=== PATIENT | male | born 1970 | race American Indian/Alaskan Native ===

== ENCOUNTER 2020-05-09 22:58 | Emergency (ER) ==
[2020-05-09 23:26] VITALS: BP 118/71
[2020-05-09 23:59] LABS: Basophils # (Auto) 0.1 K/mm3 (0.0-0.1); Basophils % (Auto) 1.4 % (0.0-1.8); Eosinophils % (Auto) 0.4 % (0.0-4.3); Lymphocytes # (Auto) 1.9 K/mm3 (1.2-5.4); Lymphocytes % (Auto) 28.8 % (13.4-35.0); Mean Corpuscular HGB Conc 37 % (32-34); Mean Corpuscular Volume 89 fl (84-94); Monocytes # (Auto) 0.4 K/mm3 (0.0-0.8); Monocytes % (Auto) 5.7 % (0.0-7.3); Platelet Count 234 K/mm3 (140-440); Red Blood Count 4.35 M/mm3 (3.65-5.03); Red Cell Distribution Width 14.8 % (13.2-15.2)
[2020-05-10 00:03] LABS: Hematocrit 38.5 % (35.5-45.6); Hemoglobin 14.1 gm/dl (11.8-15.2)
[2020-05-10 00:12] LABS: Alanine Aminotransferase 15 units/L (7-56); Albumin 4.5 g/dL (3.9-5); BUN/Creatinine Ratio 14; Blood Urea Nitrogen 13 mg/dL (9-20); Calcium 9.9 mg/dL (8.4-10.2); Hemolysis Index 11
[2020-05-10 03:30] LABS: Bilirubin,Urine NEG (Negative); Blood,Urine NEG (Negative); Color,Urine Yellow (Yellow); Mucus,Urine 2+ /HPF; Protein,Urine <15 mg/dL mg/dL (Negative)
== END 2020-05-10 00:10 | disposition left against medical advice (07) ==
LOC: ED 22:58
CPT/HCPCS: 36415; 80053; 81001; 83690; 85025

== ENCOUNTER 2021-04-06 07:48 | Emergency (ER) | payer OTHER ==
[2021-04-06] MEDS ORDERED: KETOROLAC 60 MG/2 ML INJ IM ONE (09:29)
[2021-04-06] MEDS ORDERED: ACETAMINOPHEN W/CODEINE 300-30 MG TAB PO ONE (09:29)
[2021-04-06] MEDS ORDERED: dexAMETHasone 4 MG/ML VIAL IM ONE (09:29)
--- NOTE | 2021-04-06 09:34 | Emergency Department Report ---
ED Back Pain/Injury HPI - General Chief Complaint: Back Pain/Injury Stated Complaint: LOWER BACK PAIN Time Seen by Provider: 04/06/21 09:06 Source: patient Limitations: No Limitations - History of Present Illness Initial Comments: 50 year old male presents to ED with complaints of lower back pain. Patient states his back pain started about 2 weeks ago. He denies any injury but he states he does do lifting at work. He states pain has been constant and worse with any movement/position. He states pain was worse this morning to the point he had difficulty moving. He states he has been taking aleve without much relief. He denies any radiation of pain. He denies any bowel or bladder incontinence, urinary retention or constipation. He denies saddle anesthesia, LE weakness, numbness or tingling or any other symptoms. He states he has been having lower back pain off and on for few yrs but the pain has not been as bad as it has been in the past 2 weeks. He states that he did go to an urgent care several years ago once for his back pain and got a shot but that did not really help. He states that he is never followed up with a physician coding specialist or primary care doctor or any other ERs for his back pain. MD Complaint: back pain -: week(s) (2) - Related Data Previous Rx's Medication Instructions Recorded Last Taken Type Acetaminophen/Codeine [Tylenol 1 tab PO Q6H PRN #12 tab 04/06/21 Unknown Rx /Codeine # 3 tab] methOCARBAMOL [Robaxin TAB] 750 mg PO Q8H PRN #30 tablet 04/06/21 Unknown Rx methylPREDNISolone [Medrol 4MG 4 mg PO DAILY #1 tab.ds.pk 04/06/21 Unknown Rx DOSEPAK (21 tabs)] Allergies Allergy/AdvReac Type Severity Reaction Status Date / Time No Known Allergies Allergy Unverified 05/09/20 23:25 ED Review of Systems ROS: Stated complaint: LOWER BACK PAIN Other details as noted in HPI Comment: All other systems reviewed and negative Respiratory: denies: cough, shortness of breath, SOB with exertion, SOB at rest, wheezing Cardiovascular: denies: chest pain, palpitations Gastrointestinal: denies: abdominal pain, nausea, diarrhea, constipation, hematemesis, hematochezia Genitourinary: denies: urgency, dysuria, frequency, hematuria, discharge, testicular pain, testicular mass Musculoskeletal: back pain. denies: joint swelling, arthralgia, myalgia Skin: denies: rash, lesions, change in color, change in hair/nails, pruritus Neurological: denies: headache, weakness, paresthesias, confusion, abnormal gait, vertigo Psychiatric: denies: anxiety, depression, auditory hallucinations, visual hallucinations, homicidal thoughts, suicidal thoughts Hematological/Lymphatic: denies: easy bleeding, easy bruising, swollen glands ED Past Medical Hx - Past Medical History Previous Medical History?: No - Surgical History Past Surgical History?: No - Social History Smoking Status: Never Smoker Substance Use Type: Marijuana - Medications Home Medications: Home Medications Medication Instructions Recorded Confirmed Last Taken Type Acetaminophen/Codeine [Tylenol 1 tab PO Q6H PRN #12 tab 04/06/21 Unknown Rx /Codeine # 3 tab] methOCARBAMOL [Robaxin TAB] 750 mg PO Q8H PRN #30 tablet 04/06/21 Unknown Rx methylPREDNISolone [Medrol 4MG 4 mg PO DAILY #1 tab.ds.pk 04/06/21 Unknown Rx DOSEPAK (21 tabs)] ED Physical Exam - General Limitations: No Limitations General appearance: alert, in no apparent distress - Head Head exam: Present: atraumatic, normocephalic, normal inspection - Eye Eye exam: Present: normal appearance, PERRL, EOMI Pupils: Present: normal accommodation - Neck Neck exam: Present: normal inspection, full ROM - Respiratory Respiratory exam: Present: normal lung sounds bilaterally. Absent: respiratory distress - Cardiovascular Cardiovascular Exam: Present: regular rate, normal rhythm, normal heart sounds - GI/Abdominal GI/Abdominal exam: Present: soft. Absent: distended, tenderness, guarding, rebound - Back Exam Back exam: Present: normal inspection, muscle spasm, paraspinal tenderness (right lumbar area). Absent: full ROM (rotation of spine to left painful but not limited. Flex of spine mildly limited due to pain. ), CVA tenderness (R), CVA tenderness (L) - Neurological Exam Neurological exam: Present: alert, oriented X3, CN II-XII intact. Absent: motor sensory deficit - Psychiatric Psychiatric exam: Present: normal affect, normal mood - Skin Skin exam: Present: intact ED Course Vital Signs 04/06/21 08:08 Temperature 98.8 F Pulse Rate 58 L Respiratory 20 Rate Blood Pressure 138/74 O2 Sat by Pulse 100 Oximetry ED Medical Decision Making - Radiology Data Radiology results: report reviewed Patient: JAMIE LYN IV MR#: [id number] : 1970 Acct:[id number] Age/Sex: 50 / M ADM Date: 04/06/21 Loc: ED Attending Dr: Ordering Physician: FLO BUTCHER Date of Service: 04/06/21 Procedure(s): XR spine lumbosacral 2-3V Accession Number(s): [id number] cc: FLO BUTCHER Fluoro Time In Minutes: LUMBOSACRAL SPINE 3 VIEWS INDICATION: severe back pain. COMPARISON: None. IMPRESSION: Normal alignment. 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 Mild facet arthropathy is identified at L4-5 and L5-S1. The remaining levels are within normal limits. No acute osseous or soft tissue abnormality. Signer Name: Sean Mosley Jr, MD Signed: 04/06/2021 10:16 AM Workstation Name: [id number] Transcribed By: TTR Dictated By: SEAN MOSLEY JR, MD Electronically Authenticated By: SEAN MOSLEY JR, MD Signed Date/Time: 04/06/21 1016 DD/ 1015 TD/TT: - Medical Decision Making The patient presented with low back back pain x2 weeks. Xray of lumbar spine shows djd but otherwise nothing acute. The patient is now resting comfortably and feels better, is alert, talkative, interactive and in no distress. The patient is neurologically intact and is ambulatory in the ED. He has no fever, no bowel or bladder incontinence, no saddle anesthesia and is otherwise alert and well-appearing. His history, physical examination and diagnostic testing does not suggest the presence of acute spinal epidural abscess, acute epidural bleed, cauda equina syndrome, abdominal/thoracic aortic aneurysm, aortic dissection or other acute process requiring further testing, treatment or consultation in the emergency department. His vital signs have been stable. Discussed xray results with patient. Recommend f/u with system configuration specialist for outpatient MRI. He expressed understanding of instructions and agree with plan. The patient condition is stable and appropriate for discharge. The patient will pursue further outpatient evaluation with the primary care physician or other designated or consulting physician as indicated in the discharge instructions. Critical care attestation.: If time is entered above; I have spent that time in minutes in the direct care of this critically ill patient, excluding procedure time. ED Disposition Clinical Impression: Low back pain Disposition: DC-01 TO HOME OR SELFCARE Is pt being admited?: No Does the pt Need Aspirin: No Condition: Stable Instructions: Acute Back Pain, Adult, Degenerative Disk Disease Additional Instructions: Recommend that you take the Medrol Dosepak, the Tylenol threes and Robaxin as prescribed. It is important that you follow-up with the orthopedic physician coding specialist listed on your discharge instructions for an MRI of your lumbar spine. Return to the ER if your symptoms changes or worsens in any way Prescriptions: methylPREDNISolone [Medrol 4MG DOSEPAK (21 tabs)] 4 mg PO DAILY #1 tab.ds.pk methOCARBAMOL [Robaxin TAB] 750 mg PO Q8H PRN #30 tablet PRN Reason: Muscle Spasm Acetaminophen/Codeine [Tylenol /Codeine # 3 tab] 1 tab PO Q6H PRN #12 tab PRN Reason: Pain Referrals: [facility] [Provider Group] - 3-5 Days (Call and ask for [place] location ) Forms: Accompanied Note, Work/School Release Form(ED) Time of Disposition: 10:55
--- NOTE | 2021-04-06 10:20 | XRay Report ---
LUMBOSACRAL SPINE 3 VIEWS INDICATION: severe back pain. COMPARISON: None. IMPRESSION: Normal alignment. 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 Mild facet arthropath y is identified at L4-5 and L5-S1. The remaining levels are within normal limits. No acute osseous o r soft tissue abnormality. Signer Name: Sean Dahl Jr, MD Signed: 04/06/2021 10:16 AM Workstation Name: [id number]
[2021-04-06 11:11] VITALS: BP 136/77
== END 2021-04-06 11:10 | disposition home or self-care (01) ==
LOC: ED 07:48
DX: M54.5 Low back pain (principal); F12.10 Cannabis abuse, uncomplicated; Z79.899 Other long term (current) drug therapy
CPT/HCPCS: 72100; 96372; 99283; J1100; J1885